=== PATIENT | female | born 2000 | race Two or more races ===

== ENCOUNTER 2023-08-16 21:39 | Observation (INO) ==
[2023-08-16] MEDS ORDERED: ACETAMINOPHEN 1,000 MG/100 ML VIAL IV STA (22:01)
--- NOTE | 2023-08-16 22:05 | Emergency Department Note ---
Impression & Plan Breakthrough seizure, Headache, Tachycardia, Acute hypokalemia ED Provider Note HISTORY OF PRESENT ILLNESS: Patient is a 23-year-old female presenting after seizure-like activity. Patient has a history of seizures and is on Lamictal twice daily. She reports her last seizure was 5 days ago. Her neurologist is in [place] and recommended that she increase her Lamictal from once daily to twice daily. No other medication changes. Reports that she was supposed to take her Lamictal after dinner but did not get to it as she had just eaten 10 minutes prior to the seizure occurring. Patient denies any chest pain, shortness of breath or lightheadedness prior to the seizure. Reportedly was having her typical seizure-like activity per roommates on scene. On arrival to the ER, the patient reports she been having a daily headache for the last 3 weeks. She has been taking naproxen with little relief in her headache symptoms. Denies any nausea or vomiting. Denies any change in vision, numbness or tingling or weakness in her extremities. Denies any recent falls, head injury or chiropractic manipulation of her neck. ROS: as above PHYSICAL EXAM: Constitutional: Patient appears in no acute distress. HENT: Head: Normocephalic and atraumatic. Eyes: EOMI, PERRL Mouth/Throat: Mucous membranes moist. Neck: Trachea midline. Neck supple. Cardiovascular: Tachycardic with regular rhythm. No murmurs, rubs or gallops. Intact distal pulses. Pulmonary/Chest: No respiratory distress. Breath sounds clear and equal bilaterally. No wheezes or rales. Abdominal: Abdomen soft, no tenderness, rebound or guarding. Musculoskeletal: No edema, tenderness or deformity noted. Skin: Warm and dry. No rash, erythema, pallor or cyanosis Psychiatric: Appropriate mood and affect for situation. Neurological: Alert and keenly responsive. CN II-XII grossly intact, moving all extremities equally and fully. MDM: - Vitals signs showed tachycardia - History obtained via patient. Patient presents with seizure-like activity. Patient has a history of seizures and is on Lamictal twice daily. She reports she had a seizure 5 days ago. She is from [place] and her neurologist recommended she increase her Neulactil from once daily to twice daily. She states that she had seizure-like activity tonight that was witnessed by her roommates. - Chronic conditions affecting care: Seizure disorder - Differential diagnoses include, but are not limited to: Breakthrough seizure; dysrhythmia; electrolyte abnormality; UTI; intracranial hemorrhage; intracranial mass - Order placed for continuous cardiac monitoring. At this time, monitor showed rate of 100 bpm with normal sinus rhythm, per my interpretation. - External medical records reviewed. EMS run sheet was reviewed. Patient was vitally stable in route. She was given 2 mg IV Ativan prehospital. - EKG reviewed by myself showed normal sinus rhythm. Rate tachycardic at 97 bpm. QTc 434. No acute ischemic changes. - Laboratory workup interpreted by myself showed normal WBC; hypokalemia (K 3.4); normal magnesium; negative hCG; negative alcohol; negative dimer - CT head wo contrast negative for acute intracranial pathology. - Patient given 1L NS, her home dose of 100 mg PO lamictal and 1g IV tylenol for headache in ER. - Given 10 mEq PO potassium for electrolyte replacement. - On reassessment, patient reports that she is afraid to go home, given that she had a seizure a few days ago and had another one tonight. She has a follow-up neurology appointment this week to establish care in [place]. - Discussion was had with social human services assistants about patient's case and need for admission for observation - Hospitalist consulted for admission - Patient [facility] hospitalist service for further evaluation and management. ASSESSMENT AND PLAN: Diagnosis: Breakthrough seizure; headaches; tachycardia; acute hypokalemia Plan: admit Past Med/Surg History Social History Smoking Status: Never smoker Preferred Language: Setswana Feels Safe at Home: Yes Allergies Allergies Allergy/AdvReac Type Severity Reaction Status Date / Time No Known Allergies Allergy Unverified 08/12/23 14:00 Home Meds Home Medications Medication Instructions Recorded Confirmed Thyroxine 100 100 mg PO DAILY 08/12/23 08/12/23 naproxen 500 mg tablet 500 mg PO BID PRN Pain 08/12/23 08/12/23 Previous Rx's Medication Instructions Recorded lamotrigine 100 mg tablet 100 mg PO DAILY 30 days #30 tabs 08/12/23 (Lamictal) Results & Data (ED) Vital Signs Vital Signs - 24 hr 08/16/23 21:43 08/16/23 21:45 08/16/23 22:19 Temperature 36.8 C Temperature Source Oral Pulse Rate 102 H 104 H Pulse Rate [Apical] 116 H Pulse Rate from SpO2 Sensor Respiratory Rate 22 22 Respiratory Effort / Characteristics Non-Labored Spontaneous Respiratory Depth Normal Normal Respiratory Pattern Regular Blood Pressure 126/69 Blood Pressure [Left Arm] 129/76 Blood Pressure Mean 88 Blood Pressure Mean [Left Arm] 93 Pulse Oximetry 100 100 Oxygen Delivery Method Room Air Room Air Sepsis Recent Fever Within 48 Hours No Sepsis New/Unexplained Change in Mental Status No Sepsis Action Taken by Nursing No Action Required 08/16/23 21:46 08/16/23 21:50 08/16/23 22:00 Temperature Temperature Source Pulse Rate 102 H 109 H Pulse Rate [Apical] Pulse Rate from SpO2 Sensor 104 H 104 H Respiratory Rate 24 23 Respiratory Effort / Characteristics Respiratory Depth Respiratory Pattern Blood Pressure 111/80 Blood Pressure [Left Arm] Blood Pressure Mean 92 Blood Pressure Mean [Left Arm] Pulse Oximetry 100 100 Oxygen Delivery Method Sepsis Recent Fever Within 48 Hours Sepsis New/Unexplained Change in Mental Status Sepsis Action Taken by Nursing 08/16/23 22:00 08/16/23 22:10 08/16/23 22:20 Temperature Temperature Source Pulse Rate 98 H 100 H Pulse Rate [Apical] Pulse Rate from SpO2 Sensor 97 H 105 H Respiratory Rate 23 18 Respiratory Effort / Characteristics Respiratory Depth Respiratory Pattern Blood Pressure 129/76 Blood Pressure [Left Arm] Blood Pressure Mean 99 Blood Pressure Mean [Left Arm] Pulse Oximetry 100 100 Oxygen Delivery Method Sepsis Recent Fever Within 48 Hours Sepsis New/Unexplained Change in Mental Status Sepsis Action Taken by Nursing 08/16/23 22:20 08/16/23 22:48 08/16/23 22:48 Temperature Temperature Source Pulse Rate 114 H 120 H Pulse Rate [Apical] Pulse Rate from SpO2 Sensor 112 H Respiratory Rate 17 18 Respiratory Effort / Characteristics Respiratory Depth Respiratory Pattern Blood Pressure 119/72 Blood Pressure [Left Arm] Blood Pressure Mean 79 Blood Pressure Mean [Left Arm] Pulse Oximetry 100 Oxygen Delivery Method Sepsis Recent Fever Within 48 Hours Sepsis New/Unexplained Change in Mental Status Sepsis Action Taken by Nursing 08/16/23 22:50 08/16/23 23:00 08/16/23 23:00 Temperature Temperature Source Pulse Rate 115 H 128 H Pulse Rate [Apical] Pulse Rate from SpO2 Sensor 118 H 128 H Respiratory Rate 22 18 Respiratory Effort / Characteristics Respiratory Depth Respiratory Pattern Blood Pressure 127/73 Blood Pressure [Left Arm] Blood Pressure Mean 85 Blood Pressure Mean [Left Arm] Pulse Oximetry 98 100 Oxygen Delivery Method Sepsis Recent Fever Within 48 Hours Sepsis New/Unexplained Change in Mental Status Sepsis Action Taken by Nursing 08/16/23 23:10 08/16/23 23:20 08/16/23 23:30 Temperature Temperature Source Pulse Rate 112 H 116 H Pulse Rate [Apical] Pulse Rate from SpO2 Sensor 111 H 117 H Respiratory Rate 19 20 Respiratory Effort / Characteristics Respiratory Depth Respiratory Pattern Blood Pressure 111/75 Blood Pressure [Left Arm] Blood Pressure Mean 87 Blood Pressure Mean [Left Arm] Pulse Oximetry 100 100 Oxygen Delivery Method Sepsis Recent Fever Within 48 Hours Sepsis New/Unexplained Change in Mental Status Sepsis Action Taken by Nursing 08/16/23 23:30 08/16/23 23:40 08/16/23 23:50 Temperature Temperature Source Pulse Rate 109 H 109 H 119 H Pulse Rate [Apical] Pulse Rate from SpO2 Sensor 115 H 111 H 117 H Respiratory Rate 16 21 22 Respiratory Effort / Characteristics Respiratory Depth Respiratory Pattern Blood Pressure Blood Pressure [Left Arm] Blood Pressure Mean Blood Pressure Mean [Left Arm] Pulse Oximetry 100 100 100 Oxygen Delivery Method Sepsis Recent Fever Within 48 Hours Sepsis New/Unexplained Change in Mental Status Sepsis Action Taken by Nursing 08/17/23 00:00 08/17/23 00:00 08/17/23 00:10 Temperature Temperature Source Pulse Rate 111 H 111 H Pulse Rate [Apical] Pulse Rate from SpO2 Sensor 113 H 109 H Respiratory Rate 18 22 Respiratory Effort / Characteristics Respiratory Depth Respiratory Pattern Blood Pressure 97/65 L Blood Pressure [Left Arm] Blood Pressure Mean 79 Blood Pressure Mean [Left Arm] Pulse Oximetry 100 100 Oxygen Delivery Method Sepsis Recent Fever Within 48 Hours Sepsis New/Unexplained Change in Mental Status Sepsis Action Taken by Nursing 08/17/23 00:20 Temperature Temperature Source Pulse Rate 118 H Pulse Rate [Apical] Pulse Rate from SpO2 Sensor 117 H Respiratory Rate 22 Respiratory Effort / Characteristics Respiratory Depth Respiratory Pattern Blood Pressure Blood Pressure [Left Arm] Blood Pressure Mean Blood Pressure Mean [Left Arm] Pulse Oximetry 100 Oxygen Delivery Method Sepsis Recent Fever Within 48 Hours Sepsis New/Unexplained Change in Mental Status Sepsis Action Taken by Nursing Laboratory Data 08/16/23 21:10 08/16/23 21:10 Lab Results 08/16/23 08/16/23 08/16/23 Range/Units 21:00 21:10 21:10 WBC 5.37 (4.8-10.8) K/ul RBC 4.67 (4.20-5.40) M/uL Hgb 12.3 (12.0-16.0) g/dl Hct 37.8 (37.0-47.0) % MCV 80.9 (80.0-100.0) fL MCH 26.3 (25.0-34.0) pg MCHC 32.5 (32.0-36.0) g/dL RDW Std Deviation 43.2 (36.4-46.3) fL RDW Coeff of Mani 14.8 H (11.5-14.5) % Plt Count 238 (130-400) K/uL MPV 11.8 (9.4-12.4) fL Immature Gran % (Auto) 0.2 % Neut % (Auto) 50.7 % Lymph % (Auto) 42.8 % [place] % (Auto) 4.8 % Eos % (Auto) 0.9 % Baso % (Auto) 0.6 % Neut # (Auto) 2.72 (1.40-6.50) K/uL Lymph # (Auto) 2.30 (1.20-3.40) K/uL [place] # (Auto) 0.26 (0.11-0.59) K/uL Eos # (Auto) 0.05 (0.00-0.50) K/uL Baso # (Auto) 0.03 (0.00-0.20) K/uL Immature Gran # (Auto) 0.01 (0.01-0.20) K/uL D-Dimer 210 (0-500) ug/L FEU Sodium 137 (136-145) mmol/L Potassium 3.4 L (3.5-5.1) mmol/L Chloride 107 (98-107) mmol/L Carbon Dioxide 20 L (21-32) mmol/L Anion Gap 10 (3-11) BUN 12 (6-23) mg/dl Creatinine 0.94 (0.6-1.2) mg/dl Est Cr Clr Drug Dosing 73.0 ml/min Est GFR ( Amer) 99.1 ml/min Est GFR (Non-Af Amer) 85.5 ml/min BUN/Creatinine Ratio 12.8 (10-20) Glucose 101 H (70-99(Fasting)) mg/dl POC Glucose (70-99) mg/dl Calcium 10.2 (8.6-10.3) mg/dl Magnesium 1.8 (1.7-2.4) mg/dl Total Bilirubin 0.4 (0.2-1.0) mg/dl AST 19 (13-39) U/L ALT 9 (7-52) U/L Alkaline Phosphatase 84 (34-104) U/L Total Protein 8.0 (6.0-8.3) gm/dl Albumin 4.8 (3.4-5.0) gm/dl Globulin 3.2 (2.5-4.0) gm/dl Albumin/Globulin Ratio 1.5 (0.9-2) HCG, Qual (Negative) Urine Color Urine Appearance (Clear) Urine pH (4.5-7.5) Ur Specific [place] (1.000-1.030) Urine Protein (Negative) Urine Glucose (UA) (Negative) Urine Ketones (Negative) Urine Blood (Negative) Urine Nitrite (Negative) Urine Bilirubin (Negative) Urine Urobilinogen (Negative) Ur Leukocyte Esterase (Negative) Urine Opiates Screen (Neg) Ur Methadone, Qual (Neg) Urine Barbiturates (Neg) Ur Phencyclidine (PCP) (Neg) U Amphetamin/Meth Scrn (Neg) MDMA (Ecstasy) Screen (Neg) U Benzodiazepines Scrn (Neg) Ur Cocaine Metabolite (Neg) U Marijuana (THC) Screen (Neg) Ethyl Alcohol mg/dL (<10.0) mg/dl 08/16/23 08/16/23 08/16/23 Range/Units 21:10 21:10 21:55 WBC (4.8-10.8) K/ul RBC (4.20-5.40) M/uL Hgb (12.0-16.0) g/dl Hct (37.0-47.0) % MCV (80.0-100.0) fL MCH (25.0-34.0) pg MCHC (32.0-36.0) g/dL RDW Std Deviation (36.4-46.3) fL RDW Coeff of Mani (11.5-14.5) % Plt Count (130-400) K/uL MPV (9.4-12.4) fL Immature Gran % (Auto) % Neut % (Auto) % Lymph % (Auto) % [place] % (Auto) % Eos % (Auto) % Baso % (Auto) % Neut # (Auto) (1.40-6.50) K/uL Lymph # (Auto) (1.20-3.40) K/uL [place] # (Auto) (0.11-0.59) K/uL Eos # (Auto) (0.00-0.50) K/uL Baso # (Auto) (0.00-0.20) K/uL Immature Gran # (Auto) (0.01-0.20) K/uL D-Dimer (0-500) ug/L FEU Sodium (136-145) mmol/L Potassium (3.5-5.1) mmol/L Chloride (98-107) mmol/L Carbon Dioxide (21-32) mmol/L Anion Gap (3-11) BUN (6-23) mg/dl Creatinine (0.6-1.2) mg/dl Est Cr Clr Drug Dosing ml/min Est GFR ( Amer) ml/min Est GFR (Non-Af Amer) ml/min BUN/Creatinine Ratio (10-20) Glucose (70-99(Fasting)) mg/dl POC Glucose 100 H (70-99) mg/dl Calcium (8.6-10.3) mg/dl Magnesium (1.7-2.4) mg/dl Total Bilirubin (0.2-1.0) mg/dl AST (13-39) U/L ALT (7-52) U/L Alkaline Phosphatase (34-104) U/L Total Protein (6.0-8.3) gm/dl Albumin (3.4-5.0) gm/dl Globulin (2.5-4.0) gm/dl Albumin/Globulin Ratio (0.9-2) HCG, Qual Negative (Negative) Urine Color Urine Appearance (Clear) Urine pH (4.5-7.5) Ur Specific [place] (1.000-1.030) Urine Protein (Negative) Urine Glucose (UA) (Negative) Urine Ketones (Negative) Urine Blood (Negative) Urine Nitrite (Negative) Urine Bilirubin (Negative) Urine Urobilinogen (Negative) Ur Leukocyte Esterase (Negative) Urine Opiates Screen (Neg) Ur Methadone, Qual (Neg) Urine Barbiturates (Neg) Ur Phencyclidine (PCP) (Neg) U Amphetamin/Meth Scrn (Neg) MDMA (Ecstasy) Screen (Neg) U Benzodiazepines Scrn (Neg) Ur Cocaine Metabolite (Neg) U Marijuana (THC) Screen (Neg) Ethyl Alcohol mg/dL < 10.0 (<10.0) mg/dl 08/17/23 08/17/23 Range/Units 00:30 00:30 WBC (4.8-10.8) K/ul RBC (4.20-5.40) M/uL Hgb (12.0-16.0) g/dl Hct (37.0-47.0) % MCV (80.0-100.0) fL MCH (25.0-34.0) pg MCHC (32.0-36.0) g/dL RDW Std Deviation (36.4-46.3) fL RDW Coeff of Mani (11.5-14.5) % Plt Count (130-400) K/uL MPV (9.4-12.4) fL Immature Gran % (Auto) % Neut % (Auto) % Lymph % (Auto) % [place] % (Auto) % Eos % (Auto) % Baso % (Auto) % Neut # (Auto) (1.40-6.50) K/uL Lymph # (Auto) (1.20-3.40) K/uL [place] # (Auto) (0.11-0.59) K/uL Eos # (Auto) (0.00-0.50) K/uL Baso # (Auto) (0.00-0.20) K/uL Immature Gran # (Auto) (0.01-0.20) K/uL D-Dimer (0-500) ug/L FEU Sodium (136-145) mmol/L Potassium (3.5-5.1) mmol/L Chloride (98-107) mmol/L Carbon Dioxide (21-32) mmol/L Anion Gap (3-11) BUN (6-23) mg/dl Creatinine (0.6-1.2) mg/dl Est Cr Clr Drug Dosing ml/min Est GFR ( Amer) ml/min Est GFR (Non-Af Amer) ml/min BUN/Creatinine Ratio (10-20) Glucose (70-99(Fasting)) mg/dl POC Glucose (70-99) mg/dl Calcium (8.6-10.3) mg/dl Magnesium (1.7-2.4) mg/dl Total Bilirubin (0.2-1.0) mg/dl AST (13-39) U/L ALT (7-52) U/L Alkaline Phosphatase (34-104) U/L Total Protein (6.0-8.3) gm/dl Albumin (3.4-5.0) gm/dl Globulin (2.5-4.0) gm/dl Albumin/Globulin Ratio (0.9-2) HCG, Qual (Negative) Urine Color Yellow Urine Appearance Clear (Clear) Urine pH 7.5 (4.5-7.5) Ur Specific [place] 1.008 (1.000-1.030) Urine Protein Negative (Negative) Urine Glucose (UA) Negative (Negative) Urine Ketones Negative (Negative) Urine Blood Negative (Negative) Urine Nitrite Negative (Negative) Urine Bilirubin Negative (Negative) Urine Urobilinogen Negative (Negative) Ur Leukocyte Esterase Negative (Negative) Urine Opiates Screen Neg (Neg) Ur Methadone, Qual Neg (Neg) Urine Barbiturates Neg (Neg) Ur Phencyclidine (PCP) Neg (Neg) U Amphetamin/Meth Scrn Neg (Neg) MDMA (Ecstasy) Screen Neg (Neg) U Benzodiazepines Scrn Neg (Neg) Ur Cocaine Metabolite Neg (Neg) U Marijuana (THC) Screen Neg (Neg) Ethyl Alcohol mg/dL (<10.0) mg/dl Administered Medications Discontinued Medications Acetaminophen (Ofirmev) 1,000 mg in 100 mls @ 400 mls/hr IV NOW STA Stop: 08/16/23 22:15 Last Infusion: 08/16/23 22:55 Dose: 0 mls/hr Documented By: paradichlorobenzene machine operator: 08/16/23 22:17 Dose: 400 mls/hr Documented By: MED Sodium Chloride (Nss) 1,000 mls @ 999 mls/hr IV .Q1H1M ONE Stop: 08/16/23 23:58 Last Admin: 08/16/23 23:23 Dose: 999 mls/hr Documented By: ORALIA Lamotrigine (Lamotrigine 100 Mg Tab) 100 mg PO NOW STA Stop: 08/16/23 23:03 Last Admin: 08/16/23 23:20 Dose: 100 mg Documented By: ORALIA Potassium Citrate (Potassium Citrate 10 Meq Tab) 10 meq PO NOW STA Stop: 08/17/23 00:10 Last Admin: 08/17/23 00:28 Dose: 10 meq Documented By: ORALIA Imaging Data Radiologist's Impression: Head CT 08/16/23 22:01 Exam(s): CT HEAD Without Contrast EXAM: CT Head Without Intravenous Contrast CLINICAL HISTORY: Reason for exam: headache; seizure. TECHNIQUE: Axial computed tomography images of the head/brain without intravenous contrast. CTDI is 38.81 mGy and DLP is 780.9 mGy-cm. Automated exposure control was utilized for the study. A dose lowering technique was utilized adhering to the principles of ALARA. COMPARISON: 08/12/23 FINDINGS: Brain: Unremarkable. No hemorrhage. No significant white matter disease. No edema. Ventricles: Unremarkable. No ventriculomegaly. Bones/joints: Unremarkable. No acute fracture. Soft tissues: Unremarkable. Sinuses: Unremarkable as visualized. No acute sinusitis. Mastoid air cells: Unremarkable as visualized. No mastoid effusion. IMPRESSION: Normal head/brain CT. Electronically signed by: Dirk Leo MD 08/17/23 00:03 AM Discharge Plan Visit Data Chief Complaint: Seizure ED Provider: Za He Discharge Problem: Breakthrough seizure, Headache, Tachycardia, Acute hypokalemia Forms Stand Alone Forms: [facility] [employer] Prescriptions Prescriptions: No Action naproxen 500 mg tablet 500 mg PO BID PRN (Reason: Pain) Thyroxine 100 100 mg PO DAILY Rx Instructions: Pt's medication is from [place]. She asks that she only takes her medication and not the medication from the hospital lamotrigine [Lamictal] 100 mg tablet 100 mg PO DAILY 30 Days Qty: 30 1RF Referrals [facility]errals: [facility] [Primary Care Provider] -
[2023-08-16 22:10] LABS: Basophils # (auto) 0.03 K/uL (0.00-0.20); Basophils % (auto) 0.6 %; Eosinophils # (auto) 0.05 K/uL (0.00-0.50); Eosinophils % (auto) 0.9 %; Hematocrit (blood only) 37.8 % (37.0-47.0); Hemoglobin 12.3 g/dl (12.0-16.0); Immature Granulocytes # (auto) 0.01 K/uL (0.01-0.20); Immature Granulocytes % (auto) 0.2 %; Lymphocytes % (auto) 42.8 %; Mean Corpuscular Hemoglobin 26.3 pg (25.0-34.0); Mean Corpuscular Hgb Conc 32.5 g/dL (32.0-36.0); Mean Corpuscular Volume 80.9 fL (80.0-100.0); Mean Platelet Volume 11.8 fL (9.4-12.4); Monocytes # (auto) 0.26 K/uL (0.11-0.59); Monocytes % (auto) 4.8 %; Neutrophils # (auto) 2.72 K/uL (1.40-6.50); Neutrophils % (auto) 50.7 %; Platelet Count 238 K/uL (130-400); RDW Coefficient of Variation 14.8 % (11.5-14.5); RDW Standard Deviation 43.2 fL (36.4-46.3); Red Blood Count 4.67 M/uL (4.20-5.40); White Blood Count 5.37 K/ul (4.8-10.8)
[2023-08-16 22:25] LABS: Albumin Level 4.8 gm/dl (3.4-5.0); Bilirubin,Total 0.4 mg/dl (0.2-1.0); Calcium 10.2 mg/dl (8.6-10.3); Magnesium 1.8 mg/dl (1.7-2.4); Potassium 3.4 mmol/L (3.5-5.1)
[2023-08-16 22:30] LABS: Pregnancy Test, Serum Negative (Negative)
[2023-08-16 22:31] LABS: Albumin Globulin Ratio 1.5 (0.9-2); BUN Creatinine Ratio 12.8 (10-20); Est GFR (African American) 99.1 ml/min; Est GFR (Non-African American) 85.5 ml/min; Globulin 3.2 gm/dl (2.5-4.0)
[2023-08-16] MEDS ORDERED: SODIUM CHLORIDE 0.9% 1,000 ML IV ONE (22:58)
[2023-08-16] MEDS ORDERED: lamoTRIgine 100 MG TAB PO STA (23:02)
--- NOTE | 2023-08-17 00:04 | CT Scan Report ---
Exam(s): CT HEAD Without Contrast EXAM: CT Head Without Intravenous Contrast CLINICAL HISTORY: Reason for exam: headache; seizure. TECHNIQUE: Axial computed tomography images of the head/brain without intravenous contrast. CTDI is 38.81 mGy and DLP is 780.9 mGy-cm. Automated exposure control was utilized for the study. A dose lowering technique was utilized adhering to the principles of ALARA. COMPARISON: 08/12/23 FINDINGS: Brain: Unremarkable. No hemorrhage. No significant white matter disease. No edema. Ventricles: Unremarkable. No ventriculomegaly. Bones/joints: Unremarkable. No acute fracture. Soft tissues: Unremarkable. Sinuses: Unremarkable as visualized. No acute sinusitis. Mastoid air cells: Unremarkable as visualized. No mastoid effusion. IMPRESSION: Normal head/brain CT. Electronically signed by: Dirk Leo MD 08/17/23 00:03 AM
[2023-08-17] MEDS ORDERED: POTASSIUM CITRATE 10 MEQ TAB PO STA (00:09)
[2023-08-17 00:14] LABS: D Dimer 210 ug/L FEU (0-500)
[2023-08-17 00:40] LABS: Appearance Urine Clear (Clear); Bilirubin Urine Negative (Negative); Blood Urine Negative (Negative); Color Urine Yellow; Glucose Urine UA Negative (Negative); Ketones Urine Negative (Negative); Leukocyte Esterase Urine Negative (Negative); Nitrite Urine Negative (Negative); Protein Urine Negative (Negative); Specific Gravity Urine 1.008 (1.000-1.030); Urobilinogen Urine Negative (Negative); pH Urine 7.5 (4.5-7.5)
[2023-08-17 01:02] LABS: Amphetamines+Metham, Urine Neg (Neg); Barbiturates, Urine Neg (Neg); Benzodiazepine, Urine Neg (Neg); Cocaine, Urine Neg (Neg); MDMA (Ecstacy), Urine Neg (Neg); Methadone, Urine Neg (Neg); Opiate, Urine Neg (Neg); Phencyclidine, Urine Neg (Neg)
--- NOTE | 2023-08-17 02:45 | History & Physical Report ---
Date of Service August 17, 2023 Assessment & Plan (1) Seizure: Plan: 23 yo female with PMHx juvenile myoclonic epilepsy, seizure, and hypothyroidism presents for seizure. #Seizure, acute on chronic #H/o Juvenile Myoclonic Epilepsy -presented with a witnessed myoclonic seizure episode lasting 5 minutes earlier this evening. Also had a seizure 5 days ago. Lamictal dose was increased in ED 5 days ago from 100mg daily to 100mg bid. CT head neg. Labs unremarkable. Unclear why seizures occurring again after being dormant for years. Possibly due to external factors of stress/anxiety/depression. -neurology consulted; pt also with outpatient neuro appt this upcoming -seizure precautions #Hypothyroidism -cont. thyroxine -TSH pending #Hypokalemia -K 3.4 on admission. Replenished. DVT ppx: ambulation FEN/GI: regular Code Status: full Dispo: med surg (2) Acute hypokalemia: (3) Headache: (4) Hypothyroid: (5) Breakthrough seizure: (6) Tachycardia: History of Present Illness Chief Complaint: seizure Primary Care Provider: [facility] 23 yo female with PMHx juvenile myoclonic epilepsy, seizure, and hypothyroidism presents for seizure. She is a student at [employer]. Patient's seizure history dates back several years ago in [place] subsequently been diagnosed with juvenile myoclo lizeth epilepsy. At that time she was started on Lamictal 100 mg daily and since 2017 had not had any myoclonic episodes until about 5 days ago when she had a seizure episode in the classroom prompting an ED visit at [facility]. Her Lamictal was increased to 100 mg twice daily and she scheduled an outpatient appointment with Dr. Swenson this upcoming . However earlier this evening she experienced another witnessed seizure which lasted about 5 minutes prior to EMS arrival. Throughout the day, she was having difficulty breathing with chest tightening and says this would occur during her previous seizures as well. She does state that over the last 3 to 4 weeks she has been experiencing constant headache with difficulty sleeping. She tried taking naproxen for these symptoms without resolve. She does have a lot of external stress as well with school along with a component of depression/anxiety. She is beginning to follow with [facility]. Allergies Allergy/AdvReac Type Severity Reaction Status Date / Time No Known Allergies Allergy Unverified 08/12/23 14:00 Home Medications Medication Instructions Recorded Confirmed Type Thyroxine 100 100 mg PO DAILY 08/12/23 08/12/23 History naproxen 500 mg tablet 500 mg PO BID PRN Pain 08/12/23 08/12/23 History lamotrigine 100 mg tablet 150 mg PO BID 30 days #30 tabs 08/17/23 Rx (Lamictal) trazodone 50 mg tablet 50 mg PO HS PRN insomnia #30 tabs 08/17/23 Rx Past Med/Surg History Medical History (Updated 08/17/23 @ 09:22 by Derek Holloway MD) Asthma Apparently had some form of asthma as a child but stopped in teen years and o lder. Surgical History (Updated 08/17/23 @ 09:17 by Derek Holloway MD) S/P wisdom tooth extraction Family History Mother Hypertension Father Hypertension Diabetes Coronary heart disease Social History (Updated 08/17/23 @ 09:19 by Derek Holloway MD) Smoking Status: Never smoker Hx Alcohol Use: Yes Alcohol Intake Frequency: 2-3 x/Week Hx Substance Use: No Preferred Language: Nauruan Communication Ability: Effective Elementary Education Teacher Required: No Beliefs That Will Affect Care: None Current Living Situation: Other Current Living Situation Comment: Apartment, roommates current occupational status: student current occupation: International relations master student [employer] Feels Safe at Home: Yes Assistive Devices: None Review of Systems Review of Systems: All systems reviewed & are unremarkable except as noted in HPI & below Physical Exam Physical Exam: Constitutional: in no acute distress, pleasant and normal affect, intact memory. AOx3. Vitals as above. HEENT: No scleral injection or discharge.Moist mucous membranes. Neck: Supple without lymphadenopathy or thyromegaly. Trachea midline. Lungs: CTAB with good effort. No wheezes/rales/rhonchi. Cardiac: RRR. No murmurs. No extremity edema. 2+ distal peripheral pulses. Abdomen: Bowel sounds present. Soft, nontender, and nondistended.No guarding. No hepatosplenomegaly. MSK: No cyanosis or clubbing. Extremities motor strength 5/5. Skin: No rashes, warm, dry. Neurologic: no focal deficits Results & Data Results & Data Vital Signs (Past 12 Hours) Vital Signs Temp Pulse Pulse Resp BP BP Pulse Ox 08/17/23 02:00 14 100 08/17/23 02:00 111/76 08/17/23 01:50 78 18 98 08/17/23 01:40 83 19 99 08/17/23 01:30 85 19 100 08/17/23 01:30 112/68 08/17/23 01:20 92 H 19 100 08/17/23 01:10 101 H 20 100 08/17/23 01:00 102 H 16 100 08/17/23 01:00 114/64 08/17/23 00:50 112 H 21 100 08/17/23 00:40 104 H 19 100 08/17/23 00:30 114 H 29 H 99 08/17/23 00:30 108/66 08/16/23 21:33 08/17/23 00:20 118 H 22 100 08/17/23 00:10 111 H 22 100 08/17/23 00:00 111 H 18 100 08/17/23 00:00 97/65 L 08/16/23 23:50 119 H 22 100 08/16/23 23:40 109 H 21 100 08/16/23 23:30 109 H 16 100 08/16/23 23:30 111/75 08/16/23 23:20 116 H 20 100 08/16/23 23:10 112 H 19 100 08/16/23 23:00 128 H 18 100 08/16/23 23:00 127/73 08/16/23 22:50 115 H 22 98 08/16/23 22:48 120 H 18 08/16/23 22:48 119/72 08/16/23 22:20 114 H 17 100 08/16/23 22:20 129/76 08/16/23 22:10 100 H 18 100 08/16/23 22:00 98 H 23 100 08/16/23 22:00 111/80 08/16/23 21:50 109 H 23 100 08/16/23 21:46 102 H 24 100 08/16/23 22:19 116 H 22 129/76 100 08/16/23 21:45 104 H 08/16/23 21:43 36.8 C 102 H 22 126/69 100 O2 Del Method 08/17/23 02:00 08/17/23 02:00 08/17/23 01:50 08/17/23 01:40 08/17/23 01:30 08/17/23 01:30 08/17/23 01:20 08/17/23 01:10 08/17/23 01:00 08/17/23 01:00 08/17/23 00:50 08/17/23 00:40 08/17/23 00:30 08/17/23 00:30 08/16/23 21:33 Room Air 08/17/23 00:20 08/17/23 00:10 08/17/23 00:00 08/17/23 00:00 08/16/23 23:50 08/16/23 23:40 08/16/23 23:30 08/16/23 23:30 08/16/23 23:20 08/16/23 23:10 08/16/23 23:00 08/16/23 23:00 08/16/23 22:50 08/16/23 22:48 08/16/23 22:48 08/16/23 22:20 08/16/23 22:20 08/16/23 22:10 08/16/23 22:00 08/16/23 22:00 08/16/23 21:50 08/16/23 21:46 08/16/23 22:19 Room Air 08/16/23 21:45 08/16/23 21:43 Room Air Laboratory Results Laboratory Results WBC 5.37 K/ul (4.8-10.8) 08/16/23 21:10 RBC 4.67 M/uL (4.20-5.40) 08/16/23 21:10 Hgb 12.3 g/dl (12.0-16.0) 08/16/23 21:10 Hct 37.8 % (37.0-47.0) 08/16/23 21:10 MCV 80.9 fL (80.0-100.0) 08/16/23 21:10 MCH 26.3 pg (25.0-34.0) 08/16/23 21:10 MCHC 32.5 g/dL (32.0-36.0) 08/16/23 21:10 RDW Std Deviation 43.2 fL (36.4-46.3) 08/16/23 21:10 RDW Coeff of Mani 14.8 % (11.5-14.5) H 08/16/23 21:10 Plt Count 238 K/uL (130-400) 08/16/23 21:10 MPV 11.8 fL (9.4-12.4) 08/16/23 21:10 Immature Gran % (Auto) 0.2 % 08/16/23 21:10 Neut % (Auto) 50.7 % 08/16/23 21:10 Lymph % (Auto) 42.8 % 08/16/23 21:10 Dillon % (Auto) 4.8 % 08/16/23 21:10 Eos % (Auto) 0.9 % 08/16/23 21:10 Baso % (Auto) 0.6 % 08/16/23 21:10 Neut # (Auto) 2.72 K/uL (1.40-6.50) 08/16/23 21:10 Lymph # (Auto) 2.30 K/uL (1.20-3.40) 08/16/23 21:10 Dillon # (Auto) 0.26 K/uL (0.11-0.59) 08/16/23 21:10 Eos # (Auto) 0.05 K/uL (0.00-0.50) 08/16/23 21:10 Baso # (Auto) 0.03 K/uL (0.00-0.20) 08/16/23 21:10 Immature Gran # (Auto) 0.01 K/uL (0.01-0.20) 08/16/23 21:10 D-Dimer 210 ug/L FEU (0-500) 08/16/23 21:00 Sodium 137 mmol/L (136-145) 08/16/23 21:10 Potassium 3.4 mmol/L (3.5-5.1) L 08/16/23 21:10 Chloride 107 mmol/L (98-107) 08/16/23 21:10 Carbon Dioxide 20 mmol/L (21-32) L 08/16/23 21:10 Anion Gap 10 (3-11) 08/16/23 21:10 BUN 12 mg/dl (6-23) 08/16/23 21:10 Creatinine 0.94 mg/dl (0.6-1.2) 08/16/23 21:10 Est Cr Clr Drug Dosing 73.0 ml/min 08/16/23 21:10 Est GFR ( Amer) 99.1 ml/min 08/16/23 21:10 Est GFR (Non-Af Amer) 85.5 ml/min 08/16/23 21:10 BUN/Creatinine Ratio 12.8 (10-20) 08/16/23 21:10 Glucose 101 mg/dl (70-99(Fasting)) H 08/16/23 21:10 POC Glucose 100 mg/dl (70-99) H 08/16/23 21:55 Calcium 10.2 mg/dl (8.6-10.3) 08/16/23 21:10 Magnesium 1.8 mg/dl (1.7-2.4) 08/16/23 21:10 Total Bilirubin 0.4 mg/dl (0.2-1.0) 08/16/23 21:10 AST 19 U/L (13-39) 08/16/23 21:10 ALT 9 U/L (7-52) 08/16/23 21:10 Alkaline Phosphatase 84 U/L (34-104) 08/16/23 21:10 Total Protein 8.0 gm/dl (6.0-8.3) 08/16/23 21:10 Albumin 4.8 gm/dl (3.4-5.0) 08/16/23 21:10 Globulin 3.2 gm/dl (2.5-4.0) 08/16/23 21:10 Albumin/Globulin Ratio 1.5 (0.9-2) 08/16/23 21:10 HCG, Qual Negative (Negative) 08/16/23 21:10 Urine Color Yellow 08/17/23 00:30 Urine Appearance Clear (Clear) 08/17/23 00:30 Urine pH 7.5 (4.5-7.5) 08/17/23 00:30 Ur Specific [place] 1.008 (1.000-1.030) 08/17/23 00:30 Urine Protein Negative (Negative) 08/17/23 00:30 Urine Glucose (UA) Negative (Negative) 08/17/23 00:30 Urine Ketones Negative (Negative) 08/17/23 00:30 Urine Blood Negative (Negative) 08/17/23 00:30 Urine Nitrite Negative (Negative) 08/17/23 00:30 Urine Bilirubin Negative (Negative) 08/17/23 00:30 Urine Urobilinogen Negative (Negative) 08/17/23 00:30 Ur Leukocyte Esterase Negative (Negative) 08/17/23 00:30 Urine Opiates Screen Neg (Neg) 08/17/23 00:30 Ur Methadone, Qual Neg (Neg) 08/17/23 00:30 Urine Barbiturates Neg (Neg) 08/17/23 00:30 Ur Phencyclidine (PCP) Neg (Neg) 08/17/23 00:30 U Amphetamin/Meth Scrn Neg (Neg) 08/17/23 00:30 MDMA (Ecstasy) Screen Neg (Neg) 08/17/23 00:30 U Benzodiazepines Scrn Neg (Neg) 08/17/23 00:30 Ur Cocaine Metabolite Neg (Neg) 08/17/23 00:30 U Marijuana (THC) Screen Neg (Neg) 08/17/23 00:30 Ethyl Alcohol mg/dL < 10.0 mg/dl (<10.0) 08/16/23 21:[address] 08/16/23 22:01 Exam(s): CT HEAD Without Contrast EXAM: CT Head Without Intravenous Contrast CLINICAL HISTORY: Reason for exam: headache; seizure. TECHNIQUE: Axial computed tomography images of the head/brain without intravenous contrast. CTDI is 38.81 mGy and DLP is 780.9 mGy-cm. Automated exposure control was utilized for the study. A dose lowering technique was utilized adhering to the principles of ALARA. COMPARISON: 08/12/23 FINDINGS: Brain: Unremarkable. No hemorrhage. No significant white matter disease. No edema. Ventricles: Unremarkable. No ventriculomegaly. Bones/joints: Unremarkable. No acute fracture. Soft tissues: Unremarkable. Sinuses: Unremarkable as visualized. No acute sinusitis. Mastoid air cells: Unremarkable as visualized. No mastoid effusion. IMPRESSION: Normal head/brain CT. Electronically signed by: Dirk Leo MD 08/17/23 00:03 AM Supervising Physician Co-Signing Physician Notes Patient seen and examined, chart reviewed, case discussed with Dr. Vivar and I agree with the assessment and plan as above. In brief, patient is a 23yo female with history of juvenile myoclonic seizures on Lamictal presenting with breakthrough seizure. Patient reports she has not been sleeping well and has been feeling depressed. Has been compliant with her medications. On exam she is afebrile, HD stable, NAD Skin - no rash HEENT - MMM, Neck supple Heart - +S1/S2, regular, no m/r/g Lungs - CTA Abd - soft, NT/ND Ext - warm, well perfused Neuro - unremarkable Labs and images reviewed Assessment/Plan - 23yo female with history of juvenile myoclonic epilepsy presenting with breakthrough seizure in setting of poor sleep -likely contribuing. Awaiting Lamictal level as well -Observation to medical -Continue Lamictal - dose adjustment pending level -Maintain seizure precautions -Patient already scheduled with [facility] to discuss her worsening depression and poor sleep Resident Activity Tracking Resident Involvement: Resident Care Provided Care Provided: Adult Hospital Medicine
[2023-08-17 04:28] LABS: Thyroid Stimulating Hormone 40.279 uIu/ml (0.300-4.500)
[2023-08-17] MEDS ORDERED: ONDANSETRON 4 MG OD TAB PO PRN (05:00)
[2023-08-17] MEDS ORDERED: ACETAMINOPHEN 325 MG TAB PO PRN (05:00)
[2023-08-17 05:23] LABS: T4 Free Thyroxine 1.03 ng/dl (0.61-1.60)
--- NOTE | 2023-08-17 07:57 | Hospitalist Progress Note ---
Date of Service August 17, 2023 Assessment & Plan (1) Seizure: Plan: 23 yo female with PMHx juvenile myoclonic epilepsy, seizure, and hypothyroidism presents for seizure. #Seizure, acute on chronic #H/o Juvenile Myoclonic Epilepsy -presented with a witnessed myoclonic seizure episode lasting 5 minutes earlier this evening. Also had a seizure 5 days ago. Lamictal dose was increased in ED 5 days ago from 100mg daily to 100mg bid. CT head neg. Labs unremarkable. Unclear why seizures occurring again after being dormant for years. Possibly due to external factors of stress/anxiety/depression. -neurology consulted; pt also with outpatient neuro appt this upcoming -seizure precautions #Hypothyroidism -cont. thyroxine -TSH pending #Hypokalemia -K 3.4 on admission. Replenished. DVT ppx: ambulation FEN/GI: regular Code Status: full Dispo: med surg (2) Acute hypokalemia: (3) Headache: (4) Hypothyroid: (5) Breakthrough seizure: (6) Tachycardia: Admission and Anticipated Discharge Date Admission Date: August 17, 2023 Results & Data Results & Data Vital Signs (Past 12 Hours) Vital Signs Temp Pulse Pulse Pulse Resp BP BP 08/17/23 07:20 36.7 C 70 16 106/67 08/17/23 05:06 36.8 C 92 H 18 113/81 08/17/23 04:20 85 15 08/17/23 04:10 93 H 19 08/17/23 04:00 87 18 08/17/23 04:00 107/62 08/17/23 03:50 86 23 08/17/23 03:40 93 H 15 08/17/23 03:30 90 16 08/17/23 03:30 117/73 08/17/23 03:20 84 20 08/17/23 03:10 90 23 08/17/23 03:00 86 23 08/17/23 03:00 131/78 08/17/23 02:50 89 20 08/17/23 02:40 95 H 19 08/17/23 02:30 92 H 22 08/17/23 02:30 111/65 08/17/23 02:20 86 20 08/17/23 02:10 89 18 08/17/23 04:45 08/17/23 02:00 14 08/17/23 02:00 111/76 08/17/23 01:50 78 18 08/17/23 01:40 83 19 08/17/23 01:30 85 19 08/17/23 01:30 112/68 08/17/23 01:20 92 H 19 08/17/23 01:10 101 H 20 08/17/23 01:00 102 H 16 08/17/23 01:00 114/64 08/17/23 00:50 112 H 21 08/17/23 00:40 104 H 19 08/17/23 00:30 114 H 29 H 08/17/23 00:30 108/66 08/16/23 21:33 08/17/23 00:20 118 H 22 08/17/23 00:10 111 H 22 08/17/23 00:00 111 H 18 08/17/23 00:00 97/65 L 08/16/23 23:50 119 H 22 08/16/23 23:40 109 H 21 08/16/23 23:30 109 H 16 08/16/23 23:30 111/75 08/16/23 23:20 116 H 20 08/16/23 23:10 112 H 19 08/16/23 23:00 128 H 18 08/16/23 23:00 127/73 08/16/23 22:50 115 H 22 08/16/23 22:48 120 H 18 08/16/23 22:48 119/72 08/16/23 22:20 114 H 17 08/16/23 22:20 129/76 08/16/23 22:10 100 H 18 08/16/23 22:00 98 H 23 08/16/23 22:00 111/80 08/16/23 21:50 109 H 23 08/16/23 21:46 102 H 24 08/16/23 22:19 116 H 22 129/76 08/16/23 21:45 104 H 08/16/23 21:43 36.8 C 102 H 22 126/69 Pulse Ox O2 Del Method 08/17/23 07:20 100 Room Air 08/17/23 05:06 96 Room Air 08/17/23 04:20 100 08/17/23 04:10 99 08/17/23 04:00 100 08/17/23 04:00 08/17/23 03:50 100 08/17/23 03:40 100 08/17/23 03:30 100 08/17/23 03:30 08/17/23 03:20 100 08/17/23 03:10 100 08/17/23 03:00 100 08/17/23 03:00 08/17/23 02:50 100 08/17/23 02:40 99 08/17/23 02:30 100 08/17/23 02:30 08/17/23 02:20 100 08/17/23 02:10 100 08/17/23 04:45 Room Air 08/17/23 02:00 100 08/17/23 02:00 08/17/23 01:50 98 08/17/23 01:40 99 08/17/23 01:30 100 08/17/23 01:30 08/17/23 01:20 100 08/17/23 01:10 100 08/17/23 01:00 100 08/17/23 01:00 08/17/23 00:50 100 08/17/23 00:40 100 08/17/23 00:30 99 08/17/23 00:30 08/16/23 21:33 Room Air 08/17/23 00:20 100 08/17/23 00:10 100 08/17/23 00:00 100 08/17/23 00:00 08/16/23 23:50 100 08/16/23 23:40 100 08/16/23 23:30 100 08/16/23 23:30 08/16/23 23:20 100 08/16/23 23:10 100 23 23:00 100 08/16/23 23:00 23 22:50 98 2223 22:48 2223 22:48 22 22:20 100 08/16/23 22:20 08/16/23 22:10 100 08/16/23 22:00 100 08/16/23 22:00 08/16/23 21:50 100 23 21:46 100 08/16/23 22:19 100 Room Air 08/16/23 21:45 08/16/23 21:43 100 Room Air
--- NOTE | 2023-08-17 08:56 | Neurology Consultation ---
Date of Consultation August 17, 2023 Assessment & Plan (1) Epilepsy: (2) Breakthrough seizure: (3) Headache: (4) Insomnia: Plan This patient carries a diagnosis of epilepsy and has had 2 breakthrough seizures, 1 on August 12 and 1 in the evening of August 21. The patient has an episode of staring spells which are likely partial seizures. She also has a history of progressive (especially over the last 3 weeks) mixed type headaches with migrainous and non migrainous features. She is been having some stress at school and insomnia (from a combination of the headaches and stress). Sleep deprivation will lower seizure threshold and make it easier for her to have spells. However, her Lamictal level was 1.0 on August 12 which is quite low. Otherwise her neurologic examination is unremarkable with no focal findings, meningeal signs, encephalopathy. Recommendations: 1. Increase lamotrigine to 150 mg twice a day. 2. Check trough level in 2 weeks. 3. MRI of the brain with and without contrast 4. EEG routine 5. Check TSH, ESR, Lyme antibody titers, and B12 6. Additional recommendations will be made depending on her clinical course and the above tests. I can follow as an outpatient and we should see her back in clinic with PA in 3 weeks. Overall, I spent a total of 100 minutes with this case including review of records, review of CT films, direct evaluation the patient at bedside, report generation, and discussion of the case with the patient as well as Dr. Hart, including differential diagnosis and treatment options History of Present Illness Reason for Consultation: Patient is a 23-year-old, who I was asked to see the request of Dr. Vivar, for neurologic consultation regarding seizures and other issues Requesting Physician: Dr. Vivar Attending Physician: Cholo Hart, DO History of Present Illness Patient tells me that when she was about 12 years old she had the onset of what she calls zoning out episodes. These have been occurring intermittently ever since at various frequencies. Basically she will suddenly stop whatever she is doing and freeze and stare. This will last up to a minute and then she will be back to normal although occasionally she might be a little bit tired after this. There are no triggers other than she thinks stress can bring them out. During the episode she does not recall anything and can not talk or understand. She will not collapse to the ground, stiffen, or jerk. She has no tongue biting or incontinence with these. In 2013 she had the onset of headaches. These have been intermittent waxing and waning over the years with variable frequency and intensity. They tend to be increased with stress and last anywhere from a day or so to a week. There tends to be a pain at the top of her head posteriorly or bioccipital pain it is a steady pressure bilaterally. She can get nauseated and sound can bother her but she does not vomit and light does not bother her. Acetaminophen is of no help. Ibuprofen more recently was of no help. Naproxen did help some in the past but not in the last few weeks. Around age 16, the patient started having multiple episodes (as many as 4 5 in a day or may go days without). These episodes will start with a sudden onset of difficulty breathing and inability to speak. She could hear and understand. She would get stiffening bilaterally in her hands and legs but would not collapse or lose consciousness. Typically she would not bite her tongue or have incontinence of urine. Following the spell she might be tired and sleep up to several hours. At 1st, people thought all of her episodes were psychiatric/psychological in nature but then apparently she had a positive EEG and she was given the diagnosis of epilepsy (in [place]). Also, she claims she had normal MRIs back then as well. Obviously, I do not have these records. About 5 years ago she was initiated on lamotrigine and has been on 100 mg twice a day ever since. Over the last 3 weeks she is had increase in daily significant headaches. She is also had trouble falling asleep and staying asleep. Therefore she is been very sleep deprived with headaches and some stress over the last few weeks. On August 12 at around 9:15 a.m. or so in the morning she was presenting in a class. She had the sudden onset of a zone out episode of a typical nature. Apparently she was staring and did not recall. Not too long after that, she was told afterwards by a teacher that she zoned out and then fell to the ground jerking all over. She would also bit her tongue. She was very tired after this episode. She went to the emergency room August 12. She was given 1 g IV Keppra, IV Ativan, and IV fluids. Vital signs were unremarkable and a CBC and Chem profile was unremarkable as well. Phosphorus was low at 1.2. Urinalysis was unremarkable. A CT scan of the head was unremarkable. At that time, a Lamictal level was drawn was not back. She was discharged on her usual dose. Her Lamictal dose was 1.0 (normal 2.5-15). The patient continues to have sleep deprivation, headaches as described above, and on August 16 after eating dinner she was sitting and suddenly felt very short of breath and stiffness in her hands and legs. Apparently she had no recall and passed out. She was tired thereafter. She arrived to the emergency room August 16 at 9:43 p.m. with a temperature of 36.8, pulse 102, respiratory rate 22, blood pressure 126/69, and O2 saturation 100%. Apparently she was given 2 mg of Ativan by EMS prior to arrival. Neurologic examination in the emergency room was quite normal being describes alert and keenly responsive with no focal findings or meningeal signs. CBC and Chem profile were unremarkable. Potassium was 3.4. She had a negative test, negative tox screen or alcohol and urinalysis was unremarkable. CT scan of the head was unremarkable and I reviewed these films. Since admission she has had no seizures. She is feeling better today with less headache. There is no family history of seizures. Allergies Allergy/AdvReac Type Severity Reaction Status Date / Time No Known Allergies Allergy Unverified 08/12/23 14:00 Home Medications Medication Instructions Recorded Confirmed Type Thyroxine 100 100 mg PO DAILY 08/12/23 08/12/23 History lamotrigine 100 mg tablet 100 mg PO DAILY 30 days #30 tabs 08/12/23 Rx (Lamictal) naproxen 500 mg tablet 500 mg PO BID PRN Pain 08/12/23 08/12/23 History Patient History Medical History (Updated 08/17/23 @ 09:22 by Derek Holloway MD) Asthma Apparently had some form of asthma as a child but stopped in teen years and older. Surgical History (Updated 08/17/23 @ 09:17 by Derek Holloway MD) S/P wisdom tooth extraction Family History Mother Hypertension Father Hypertension Diabetes Coronary heart disease Social History (Updated 08/17/23 @ 09:19 by Derek Holloway MD) Smoking Status: Never smoker Hx Alcohol Use: Yes Alcohol Intake Frequency: 2-3 x/Week Hx Substance Use: No Preferred Language: Korean Communication Ability: Effective Water Softener Installer Required: No Beliefs That Will Affect Care: None Current Living Situation: Other Current Living Situation Comment: Apartment, roommates current occupational status: student current occupation: International relations master student [employer] Feels Safe at Home: Yes Assistive Devices: None Review of Systems Constitutional: no fever, no fatigue and no weakness Eyes: no diplopia, no eye pain and no worsening vision Ear, Nose, Mouth, Throat: no ear pain, no tinnitus, no hearing loss, no dizziness, no snoring, no hoarseness and no dysphagia Respiratory: no cough and no dyspnea Cardiovascular: no chest pain, no palpitations and no lightheadedness Gastrointestinal: no abdominal pain, no nausea and no vomiting Genitourinary: no dysuria, no urinary frequency and no urinary incontinence Musculoskeletal: no back pain, no neck pain, no radicular pain, no joint pain and no myalgia Integumentary: no rash and no lesions Neurologic: + headache(s); no gait abnormality, no localized weakness, no generalized weakness, no tingling, no numbness, no tremor(s), no abnormal movements, no abnormal speech, no confusion and no memory loss Psychiatric: no depression, no irritability, no anxiety, no difficulty concentrating, no confusion and no hallucinations Endocrine: no fatigue and no flushing Hematologic / Lymphatic: no easy bleeding and no easy bruising Allergy / Immunological: no urticaria and no problem reported Exam (Neuro) Physical Exam: The patient is right-handed. The patient is awake, alert, and attentive. Speech is normal without any aphasia or dysarthria. The patient can name objects, repeat phrases, and has normal spontaneous speech. Mentation and thought processes are intact, with orientation to person, place and time, and normal fund of knowledge. Attention and concentration are normal. Mood and affect are normal and appropriate. General appearance and grooming are normal. Short and long-term memory are intact. Pupils are 4 mm bilaterally and reactive to light. Extraocular eye muscles are intact without nystagmus. Visual acuity and visual justice seem normal grossly to confrontation. There are no deficits to sensation in the face in all 3 distributions of the fifth cranial nerve bilaterally. Corneal reflexes are positive bilaterally. Facial strength and symmetry was normal bilaterally. Hearing seems normal bilaterally. Palate moves well without asymmetry. There is normal sternocleidomastoid and trapezius (shoulder shrug) strength bilaterally. Tongue is midline with good strength bilaterally. Neck has a full range of motion without discomfort. There are no cervical bruits bilaterally. There are no cranial or ocular bruits. Heart is without murmur. There is a regular rhythm and rate. Cervical, thoracic, and lumbar spine are nontender to palpation. Gait is narrow based, with good arm swing, turns, and stance. Balance is normal eyes open or closed. The patient can tandem walk without difficulty. The pat ient can heal and toe walk normally. With outstretched arms there is no drift. There are no resting, postural, or action tremors. There is no ataxia with finger to nose testing. There is good facility in the hands. No other abnormal involuntary movements are noted. Motor strength is 5/5 diffusely in the arms bilaterally including deltoids, biceps, triceps, brachioradialis, wrist flexors and extensors, center rep, and intrinsic hand muscles. Motor strength is 5/5 diffusely in the legs bilaterally including hip flexors, quadriceps, hamstrings, gastrocnemius, tibialis anterior, tibialis posterior, and Peroneii muscles. Toe extensors are normal and there is good bulk in the extensor digitorum brevis muscles bilaterally. The limbs have good tone without rigidity or spasticity. There is no atrophy noted in the muscles. Muscle bulk is normal, there is no tenderness to palpation, no myotonia to percussion, and no fasciculations seen. Sensory examination is intact to touch and pin throughout all 4 limbs diffusely. Reflexes are 2/4 in the biceps, triceps, brachioradialis, quadriceps, and Achilles tendons bilaterally. There is no clonus bilaterally. Toes are downgoing with plantar stimulation bilaterally. Peripheral pulses are present and of normal quality distally in all 4 limbs. There is no peripheral edema noted in the limbs. Results & Data Vital Signs (Past 12 Hours) Vital Signs Temp Pulse Pulse Pulse Resp BP BP 08/17/23 07:20 36.7 C 70 16 106/67 08/17/23 05:06 36.8 C 92 H 18 113/81 08/17/23 04:20 85 15 08/17/23 04:10 93 H 19 08/17/23 04:00 87 18 08/17/23 04:00 107/62 08/17/23 03:50 86 23 08/17/23 03:40 93 H 15 08/17/23 03:30 90 16 08/17/23 03:30 117/73 08/17/23 03:20 84 20 08/17/23 03:10 90 23 08/17/23 03:00 86 23 08/17/23 03:00 131/78 08/17/23 02:50 89 20 08/17/23 02:40 95 H 19 08/17/23 02:30 92 H 22 08/17/23 02:30 111/65 08/17/23 02:20 86 20 08/17/23 02:10 89 18 08/17/23 04:45 08/17/23 02:00 14 08/17/23 02:00 111/76 08/17/23 01:50 78 18 08/17/23 01:40 83 19 08/17/23 01:30 85 19 08/17/23 01:30 112/68 08/17/23 01:20 92 H 19 08/17/23 01:10 101 H 20 08/17/23 01:00 102 H 16 08/17/23 01:00 114/64 08/17/23 00:50 112 H 21 08/17/23 00:40 104 H 19 08/17/23 00:30 114 H 29 H 08/17/23 00:30 108/66 08/16/23 21:33 08/17/23 00:20 118 H 22 08/17/23 00:10 111 H 22 08/17/23 00:00 111 H 18 08/17/23 00:00 97/65 L 08/16/23 23:50 119 H 22 08/16/23 23:40 109 H 21 08/16/23 23:30 109 H 16 08/16/23 23:30 111/75 08/16/23 23:20 116 H 20 08/16/23 23:10 112 H 19 08/16/23 23:00 128 H 18 08/16/23 23:00 127/73 08/16/23 22:50 115 H 22 08/16/23 22:48 120 H 18 08/16/23 22:48 119/72 08/16/23 22:20 114 H 17 08/16/23 22:20 129/76 08/16/23 22:10 100 H 18 08/16/23 22:00 98 H 23 08/16/23 22:00 111/80 08/16/23 21:50 109 H 23 08/16/23 21:46 102 H 24 08/16/23 22:19 116 H 22 129/76 08/16/23 21:45 104 H 08/16/23 21:43 36.8 C 102 H 22 126/69 Pulse Ox O2 Del Method 08/17/23 07:20 100 Room Air 08/17/23 05:06 96 Room Air 08/17/23 04:20 100 08/17/23 04:10 99 08/17/23 04:00 100 08/17/23 04:00 08/17/23 03:50 100 08/17/23 03:40 100 08/17/23 03:30 100 08/17/23 03:30 08/17/23 03:20 100 08/17/23 03:10 100 08/17/23 03:00 100 08/17/23 03:00 08/17/23 02:50 100 08/17/23 02:40 99 08/17/23 02:30 100 08/17/23 02:30 08/17/23 02:20 100 08/17/23 02:10 100 08/17/23 04:45 Room Air 08/17/23 02:00 100 08/17/23 02:00 08/17/23 01:50 98 08/17/23 01:40 99 08/17/23 01:30 100 08/17/23 01:30 08/17/23 01:20 100 08/17/23 01:10 100 08/17/23 01:00 100 08/17/23 01:00 08/17/23 00:50 100 08/17/23 00:40 100 08/17/23 00:30 99 08/17/23 00:30 08/16/23 21:33 Room Air 08/17/23 00:20 100 08/17/23 00:10 100 08/17/23 00:00 100 08/17/23 00:00 08/16/23 23:50 100 08/16/23 23:40 100 08/16/23 23:30 100 08/16/23 23:30 08/16/23 23:20 100 08/16/23 23:10 100 08/16/23 23:00 100 08/16/23 23:00 08/16/23 22:50 98 08/16/23 22:48 08/16/23 22:48 08/16/23 22:20 100 08/16/23 22:20 08/16/23 22:10 100 08/16/23 22:00 100 08/16/23 22:00 08/16/23 21:50 100 08/16/23 21:46 100 08/16/23 22:19 100 Room Air 08/16/23 21:45 08/16/23 21:43 100 Room Air PG Care Time/CCT Total # of Minutes Spent Total Time Spent with Patient: Total time spent is greater than 50% in coordination of care (as documented) at patient's floor/unit and/or counseling patient: Coding Level of Care Code 03138 IN/OBS CONSULT LVL 5,80M Diagnoses Epilepsy G40.909 Breakthrough seizure G40.919 Headache R51.9 Insomnia G47.00 Time Spent (min) 100
[2023-08-17] MEDS ORDERED: THYROXINE PO SCH (09:00)
[2023-08-17] MEDS ORDERED: INFLUENZA VIRUS QUADRIVALENT VACCINE (IIV4) 0.5 ML SYR IM ONE (09:00)
[2023-08-17] MEDS ORDERED: lamoTRIgine 100 MG TAB PO SCH (09:00)
[2023-08-17] MEDS ORDERED: GADOBUTROL 65ML VIAL IV ONE (12:17)
--- NOTE | 2023-08-17 14:58 | Electroencephalogram ---
EEG Procedure Note Date of Service August 17, 2023 Start / End Times Start Time: 1324 End Time: [address] Hart History 23-year-old history of epilepsy and recent breakthrough seizures Home Medication List Medication Instructions Recorded Confirmed Type Thyroxine 100 100 mg PO DAILY 08/12/23 08/12/23 History naproxen 500 mg tablet 500 mg PO BID PRN Pain 08/12/23 08/12/23 History lamotrigine 100 mg tablet 150 mg PO BID 30 days #30 tabs 08/17/23 Rx (Lamictal) trazodone 50 mg tablet 50 mg PO HS PRN insomnia #30 tabs 08/17/23 Rx Inpatient Medication List Acetaminophen (Acetaminophen 325 Mg Tab) 650 mg PO Q4H PRN PRN Reason: Pain or Fever Stop: 09/16/23 04:59 Last Admin: 08/17/23 09:03 Dose: 650 mg Documented By: ANNMARIE Lamotrigine (Lamotrigine 100 Mg Tab) 100 mg PO BID TULIO Stop: 09/16/23 08:59 Last Admin: 08/17/23 09:01 Dose: 100 mg Documented By: ANNMARIE Discontinued Medications Gadobutrol (Gadobutrol 65ml Vial) 5 ml IV ONCE ONE Stop: 08/17/23 12:18 Last Admin: 08/17/23 12:15 Dose: 5 ml Documented By: GIOVANNY Acetaminophen (Ofirmev) 1,000 mg in 100 mls @ 400 mls/hr IV NOW STA Stop: 08/16/23 22:15 Last Infusion: 08/16/23 22:55 Dose: 0 mls/hr Documented By: emergency service restorer: 08/16/23 22:17 Dose: 400 mls/hr Documented By: ASHLEY Sodium Chloride (Nss) 1,000 mls @ 999 mls/hr IV .Q1H1M ONE Stop: 08/16/23 23:58 Last Infusion: 08/17/23 00:20 Dose: 0 mls/hr Documented By: Admin: 08/16/23 23:23 Dose: 999 mls/hr Documented By: ORALIA Influenza Virus Vaccine Quadrival (Influenza Virus Quadrivalent Vaccine (Iiv4) 0.5 Ml Syr) 0.5 ml IM .ONCE ONE Stop: 08/17/23 09:01 Last Admin: 08/17/23 13:07 Dose: Not Given Documented By: ANNMARIE Lamotrigine (Lamotrigine 100 Mg Tab) 100 mg PO NOW STA Stop: 08/16/23 23:03 Last Admin: 08/16/23 23:20 Dose: 100 mg Documented By: ORALIA Potassium Citrate (Potassium Citrate 10 Meq Tab) 10 meq PO NOW STA Stop: 08/17/23 00:10 Last Admin: 08/17/23 00:28 Dose: 10 meq Documented By: ORALIA Description This is a 21 electrode EEG with a single channel dedicated to limited EKG. The electrodes were placed in accordance with the International 10-20 system. Interpretation The predominant background activity consists of a very well modulated 11-12 Hz activity, of up to 40 mV in amplitude,seen symmetrically distributed over the posterior head regions bilaterally. This activity attenuates nicely with eye- opening and other alerting procedures. Photic stimulation was performed and elicited no change in the background activity and no abnormal responses were seen. Hyperventilation was performed for three minutes with good effort and again no abnormalities were seen. A minimal amount of muscle and movement artifact activity contaminated the recording and did not hinder interpretation to any significant degree. Throughout the waking portion of the recording, no focal abnormalities, abnormal slow activity, or potentially epileptogenic discharges are seen. The patient entered the drowsy state and brief periods of stage II sleep with no further activation. In summary, this EEG was normal during wakefulness and sleep. No focal abnormalities, potentially epileptogenic discharges, or abnormal slow activity was seen. Clinical Correlation The abscence of potentially epileptogenic activity does not exclude a seizure disorder, since interictally, EEGs can be normal. Clinical correlation is required. [facility] [place] Procedure Codes Indication for Procedure (1) Epilepsy: Neurology Neurology: 34921 EEG include record awake & sleepy
--- NOTE | 2023-08-17 15:35 | Magnetic Resonance Report ---
MRI OF THE BRAIN WITHOUT AND WITH IV CONTRAST CLINICAL HISTORY: Seizures. COMPARISON STUDY: Head CT August 16, 2023. TECHNIQUE: Utilizing a 1.5 Sydnie magnet and dedicated coil, multiplanar, multiecho imaging of the br ain was performed pre and postcontrast administration. IV administration of 5 mL of Gadavist contras t was uneventful. Coronal thin cut coronal T2 imaging was performed. FINDINGS: There are no foci of restricted diffusion to suggest acute infarct. No acute intracranial h emorrhage, midline shift or mass effect is present. Brain volume is normal. Ventricular system is nor mal. Basal cisterns are patent. There is no intracranial mass or pathologic enhancement. No parenchym al signal abnormality is identified. There is no evidence for mesial temporal sclerosis. Calvarial si gnal is normal. Orbits are unremarkable. There is no evidence for sinusitis. IMPRESSION: Unremarkable MRI of the brain. ACT 112: Negative or not required by law. Electronically signed by: Dionte Kim M.D. 08/17/2023 3:34 PM
--- NOTE | 2023-08-17 17:19 | Discharge Summary ---
Date of Service August 17, 2023 Admission HPI Per Admitting Provider 23 yo female with PMHx juvenile myoclonic epilepsy, seizure, and hypothyroidism presents for seizure. She is a student at [employer]. 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 At that time she was started on Lamictal 100 mg daily and since 2016 had not had any myoclonic episodes until about 5 days ago when she had a seizure episode in the classroom prompting an ED visit at [facility]. Her Lamictal was increased to 100 mg twice daily and she scheduled an outpatient appointment with Dr. Swenson this upcoming . However earlier this evening she experienced another witnessed seizure which lasted about 5 minutes prior to EMS arrival. Throughout the day, she was having difficulty breathing with chest tightening and says this would occur during her previous seizures as well. She does state that over the last 3 to 4 weeks she has been experiencing constant headache with difficulty sleeping. She tried taking naproxen for these symptoms without resolve. She does have a lot of external stress as well with school along with a component of depression/anxiety. She is beginning to follow with [facility]. Admission Exam Per Admitting Provider Constitutional: in no acute distress, pleasant and normal affect, intact memory. AOx3. Vitals as above. HEENT: No scleral injection or discharge.Moist mucous membranes. Neck: Supple without lymphadenopathy or thyromegaly. Trachea midline. Lungs: CTAB with good effort. No wheezes/rales/rhonchi. Cardiac: RRR. No murmurs. No extremity edema. 2+ distal peripheral pulses. Abdomen: Bowel sounds present. Soft, nontender, and nondistended.No guarding. No hepatosplenomegaly. MSK: No cyanosis or clubbing. Extremities motor strength 5/5. Skin: No rashes, warm, dry. Neurologic: no focal deficits Principal Diagnosis Epilepsy Discharge Exam Constitutional WD/WN, vitals as above Respiratory normal respiratory effort, lungs clear to auscultation Cardiovascular RRR, no murmur, no edema Skin no rashes, warm and dry Neurologic No focal neuro deficits Psychiatric A+Ox3, euthymic affect Discharge Data Allergies Allergy/AdvReac Type Severity Reaction Status Date / Time No Known Allergies Allergy Unverified 08/12/23 14:00 Consultations 08/17/23 01:04 ED Decision to Admit Stat 08/17/23 02:48 Consult Neurology Routine Ordered Studies 08/16/23 22:01 CT head/brain wo con Stat 08/17/23 08:57 MRI Brain [MR brain wo/w con] Routine Hospital Course (1) Seizure: (2) Acute hypokalemia: (3) Headache: (4) Hypothyroid: (5) Breakthrough seizure: (6) Tachycardia: Plan 23 yo female with PMH juvenile myoclonic epilepsy, seizure, and hypothyroidism presents for seizure. #Seizure, acute on chronic #H/o Juvenile Myoclonic Epilepsy -presented following a witnessed myoclonic seizure, also had a recent breakthrough seizure and was subsequently evaluated in ED - Lab work unremarkable -neurology consulted, recommend: - Increase Lamictal to 150mg BID - Lamictal level was low - recommend repeat level 2 weeks post-discharge - Follow up with outpatient neurology - MRI Brain: No acute findings noted - EEG: findings normal, both during wakefulness and sleep #Insomnia #H/o Sleep Paralysis: - Recommend trial of Trazadone 50mg QHS to target insomnia - Recommend referral to sleep medicine for evaluation, given that patient reports difficulty staying asleep as well as h/o nightmares and sleep paralysis #Hypothyroidism -continued thyroxine -TSH elevated but T4 WNL #Hypokalemia -K 3.4 on admission. Replenished. Total Time Total Time Spent Total Time Spent (In Minutes): <30 Discharge Plan Discharge Items Patient Disposition: Home - Self-Care Reason For Visit: SEIZURE Discharge Diagnosis: Epilepsy Activity: Resume your previous activity Non-emergency contact: Primary Care Provider and Neurologist Call non-emergency contact if: you have any medication questions and your symptoms worsen Follow-up/Referrals: Derek Holloway MD [Physician] - (Please call as soon as possible for a follow up outpatient neurology appointment in 3 weeks) [facility] [Primary Care Provider] - Lexa Riojas DO [Resident] - Diet: Regular Addtl Attending Provider Instructions: You were admitted to the hospital due to a breakthrough seizure. You were seen by a neurologist, who recommended changing your medication dose. Several lab and imaging studies were also ordered. Following discharge, we recommend that you have your Lamictal level checked in 2 weeks. We also recommend that you follow up with outpatient neurology for ongoing care. A discharge summary will be sent to your primary care physician to ensure continuity of care. Please bring this discharge summary with you to your next office appointment so that your provider can review it at that time. Medications: Your medication list has been reviewed and reconciled upon discharge to ensure accuracy and continuity of care. An updated list of all your medications is included with your hospital discharge paperwork. Please review this list closely and make note of any changes to your medications. Your dose of Lamictal was increased. Please CONTINUE to take Lamictal 150mg two times per day. We recommend a trial of a medication called Trazodone to help you sleep. Please take one 50mg tablet each night. A prescription for these medications has been sent to your pharmacy. Follow up appointments: - Make a follow up appointment with your PCP within the next week. It is very important that you follow up with them shortly after discharge from the hospital. - We also recommend a referral to sleep medicine specialist to address ongoing insomnia. - Please follow up with outpatient neurology. - Keep all of your follow up appointments as already scheduled. If you cannot make an appointment, notify your provider. CONTACT YOUR PRIMARY CARE PROVIDER if you experience any of the following: - Additional breakthrough seizures. - Difficulty following your treatment plan - Difficulty taking any of your medications CALL 911 OR GO TO THE EMERGENCY DEPARTMENT if you experience any of the following: - Sudden, severe abdominal pain or nausea/vomiting - Severe chest pain or chest pain that radiates to your jaw or arm - Sudden, severe shortness of breath or difficulty breathing Pending Studies at Discharge: No Stand-Alone Forms: My [employer], Smoking Cessation Medications and DC Order Prescriptions: New trazodone 50 mg tablet 50 mg PO HS PRN (Reason: insomnia) Qty: 30 1RF Continued naproxen 500 mg tablet 500 mg PO BID PRN (Reason: Pain) Thyroxine 100 100 mg PO DAILY Rx Instructions: Pt's medication is from [place]. She asks that she only takes her medication and not the medication from the hospital Changed lamotrigine [Lamictal] 100 mg tablet 150 mg PO BID 30 Days Qty: 30 1RF Discharge Orders: Discharge Order (Routine); Ordered 08/17/23 Ordered By: Lexa Chow/Other Patient Handouts: Self-Care for Epilepsy, Safety During a Seizure, Living Well with Epilepsy, Discharge Instructions for Epilepsy Admission Data Admit Date/Time: 08/17/23 02:43 Attending Provider: Cholo Hart Admit Provider: Carloz Vivar Primary Care Provider: [facility] Other Providers: Nathalia Fisher ; Wes Swenson Other Interventions: Discharge Summary Assessment (RN) Last Done: 08/17/23 17:34 Supervising Physician Co-Signing Physician Notes I personally examined the patient and verified all callejas points of history and exam, discussed case, and agree with decision making with Dr Riojas feeling better. d/w neurology. feels up to going home. discussed stress management - she's trying. still can't sleep. headaches keeping her awake? also notes having had sleep paralysis before vitals noted, in general she is awake and alert pleasant no distress. HEENT normocephalic atraumatic mucous membranes moist. Breathing unlabored no accessory muscle use good effort. Skin shows no rashes no pallor or icterus. Neuro without focal deficits. MRI/EEG noted. Breakthrough seizuresincrease Lamictal. MRI negative, EEG reassuring. Safe/stable for home. Discussed sleepits not clear if she simply has stress related insomnia, if the headaches are causing insomnia, or (given her sleep paralysis and other nightmares) if she has some type of parasomnia. Discussed risk/benefits of medically assisting sleepand the fact that most medications use to help with sleep can lower the seizure threshold some, but at the same time we will suspect that her lack of sleep is likely contributing to her seizures now. In weighing risk/benefit, she agrees that it is likely more beneficial to try to help her sleep more (even with a medicine that may slightly lower her seizure threshold) so as to try to improve the insomnia/lack of sleep that seems to be largely lowering her seizure threshold. Outpatient follow-up in regards to this, as well as stress, as well as headaches, and will ask for a sleep medicine referral given the potential parasomnia situation. otherwise as above Resident Activity Tracking Resident Involvement: Resident Care Provided Care Provided: Adult [facility]
--- NOTE | 2023-08-17 18:59 | Billing Data ---
Date of Service August 17, 2023 Coding Level of Care Code 79136 IN/OBS DISCH 30 MIN/LESS
--- NOTE | 2023-08-18 06:20 | Electrocardiogram Report ---
Test Reason : Blood Pressure : / mmHG Vent. Rate : 097 BPM Atrial Rate : 097 BPM P-R Int : 124 ms QRS Dur : 064 ms QT Int : 342 ms P-R-T Axes : 061 060 048 degrees QTc Int : 434 ms Normal sinus rhythm Normal ECG When compared with ECG of 12-AUG-2023 11:33, No significant change was found Confirmed by Julio Damon ([id number]) on 08/18/2023 6:20:28 AM Referred By: [facility] Confirmed By:Julio Damon
--- NOTE | 2023-08-19 13:06 | Billing Data ---
Date of Service August 17, 2023 Coding Level of Care Code 12340 INT INP/OBS CARE
== END 2023-08-17 18:13 | disposition home or self-care (01) ==
LOC: ED 21:39 → 3E 21:39 → SUATTDRO 08-17 02:43 → 3E 08-17 04:45
DX: E03.9 Hypothyroidism, unspecified; Z79.899 Other long term (current) drug therapy; R00.0 Tachycardia, unspecified; R51.9 Headache, unspecified; E87.6 Hypokalemia; G40.B09 Juvenile myoclonic epilepsy, not intractable, without status epilepticus; G47.00 Insomnia, unspecified